=== PATIENT | male | born 1950 | race Caucasian/White ===

== ENCOUNTER 2018-08-28 13:39 | Inpatient (IN) ==
[2018-08-28] MEDS ORDERED: CeFAZolin Syr 2,000MG/20 ML 2,000 MG/20 ML SYRINGE IVPB ONE (14:12)
[2018-08-28] MEDS ORDERED: Ringers Solution, Lactated 1,000 ML IVC SCH (14:15)
--- NOTE | 2018-08-28 14:33 | Anesthesia Evaluation PreOp ---
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: Other (chronic low back pain) Other Medical History: Denies Any Significant HX, GERD Anesthesia History: No Prior Anesthetic Complications, Past Anesthesia (trigger finger, donor nephrectomy, finger amputation) Alcohol Use: none Drug use: none Medications and Allergies Ascorbic Acid [Vitamin C] 500 mg PO DAILY 08/28/18 [History] Aspirin [Lo-Dose Aspirin EC] 81 mg PO DAILY 08/28/18 [History] Omeprazole [PriLOSEC] 40 mg PO BID 08/28/18 [History] OxyCODONE/APAP 5/325 [Percocet 5/325 MG] 1 tab PO Q6H PRN 08/28/18 [History] Ubidecarenone/Vit E Acetate [Co Q-10 100 mg Softgel] 1 cap PO DAILY 08/28/18 [History] Allergy/AdvReac Type Severity Reaction Status Date / Time gabapentin AdvReac Nausea Verified 08/28/18 14:21 tramadol AdvReac Nausea Verified 08/28/18 14:21 - Meds/Allergy Pre-op Review Medications Reviewed: Yes Allergies Reviewed: Yes Beta Blockers on Current Med List: No Anesthesia Results - Labs Laboratory Tests 08/18/18 08/18/18 08/18/18 18:34 18:34 18:34 WBC 9.7 Hgb 14.4 Hct 43.5 Plt Count 170 PT 11.5 INR 1.0 APTT 26.8 Sodium 139 Potassium 4.3 Chloride 106 Carbon Dioxide 22 L BUN 21 Creatinine 0.97 Glucose 135 H - Imaging EKG: report reviewed (Sinus rhythm Atrial premature complex Prolonged NE interval Inferior infarct, old Electronically Signed On 08-19-2018 13:53:41 EST by Arleth Sow) Anesthesia Exam O2 Sat Height 1.78 m Height 1.78 m Weight 106.594 kg Weight 106.594 kg O2 Sat by Pulse Oximetry 94 Vital Signs Temp Pulse Resp Pulse Ox 98.7 F 100 18 94 08/28/18 14:18 08/28/18 14:18 08/28/18 14:18 08/28/18 14:18 Weight: 106kg NPO (# of Hours): >8 - HEENT Pupil (Motor): Pupils equal, EOMI Mallampati: III Teeth: Poor dentition - ENVIRONMENTAL SERVICES AIDE LOC: Oriented ENVIRONMENTAL SERVICES AIDE Motor: Normal RUE, Normal LUE, Normal RLE, Normal LLE, Normal Face ENVIRONMENTAL SERVICES AIDE Sensory: Normal: RUE, LUE, RLE, LLE, Face - Cardiac Rhythm: Regular - Pulmonary Breath Sounds: bilateral Clear Respiratory Effort: Symmetrical Anesthesia Assess/Plan ASA Score: 2 Level of consciousness: Cooperative Anesthetic Plan: General, Regional Nerve Block Regional Nerve Block Plan: Supraclavicular (L) Monitoring Plan: Standard Monitors Recovery Plan: PACU
--- NOTE | 2018-08-28 14:34 | History & Physical Report ---
Date of Encounter: 08/28/18 Time of Encounter: 14:33 24 Hour HP Update - Instructions Instructions: If the History and Physical is less than 30 days old and was completed prior to A.M. admission and or procedure and has NOT been updated on calendar day of procedure please complete this update prior to performing procedure. - Update Patient reports changes in Medical Condition: No Changes in examination, assessment, or condition: No Changes in Medication: No Preop tests/diagnostics Reviewed: Yes Surgery Remains Indicated: Yes Consent for Planned Operative Procedure(s) Verified: Yes - Pre-Operative Checklist Preoperative Checklist Indicated: No Prophylactic Antibiotic Ordered: Yes Is VTE Prophylaxis Indicated?: Yes
[2018-08-28] MEDS ORDERED: Acetaminophen IV 1,000 MG/100 ML INFUS..BTL ONE (14:39)
[2018-08-28] MEDS ORDERED: *HR* Midazolam HCl 2 MG/2 ML VIAL ONE (14:43)
[2018-08-28] MEDS ORDERED: *HR* Propofol 200 MG/20 ML VIAL IVP ONE (14:46)
[2018-08-28] MEDS ORDERED: *HR* FentaNYL (PF) 100 MCG/2 ML VIAL ONE (14:46)
[2018-08-28] MEDS ORDERED: Ondansetron 4 MG/2 ML VIAL ONE (14:48)
[2018-08-28] MEDS ORDERED: Lidocaine -MPF 2% 2 ML VIAL ONE (14:48)
[2018-08-28] MEDS ORDERED: Dexamethasone 4 MG/ML VIAL ONE ×2 (14:48→15:12)
[2018-08-28] MEDS ORDERED: *HR* Succinylcholine 200 MG/10 ML VIAL IVP ONE (14:48)
[2018-08-28] MEDS ORDERED: Bupivacaine/Clonidine Syringe 1 EACH SYRINGE ONE (15:07)
[2018-08-28] MEDS ORDERED: ROPIVACAINE HCL/PF 0.5% 30 ML VIAL ONE (15:07)
--- NOTE | 2018-08-28 15:28 | Discharge Summary ---
Orders not resulted at time of discharge: Pending orders 08/28/18 00:01 XR shoulder complete LT [XR] Routine H/H [Hemoglobin and Hematocrit] [HEME] Routine 08/28/18 14:52 US anesthesia pain block [US] Stat Date of Encounter: 08/29/18 Time of Encounter: 11:54 - Discharge Diagnosis (1) Status post reverse total replacement of left shoulder Priority: Primary Status: Acute Comments: Opsite dressing, leave intact until first post-operative visit. Zipline in place, plan to remove at post-operative day #14-16. If dressing becomes >50% saturated, contact office, remove dressing and place appropriate dressing in its place. Do not allow for dressing to get wet. Shoulder Precautions x 6 weeks. Apply cold therapy wrap 3-6x/day for 20 minutes at a time. Encourage ambulation throughout the day. Use Incentive spirometer 10x/hour. Elevate affected extremity above heart as tolerated. NWB to affected upper extremity x 6 weeks. 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 Pardo is a 68 year old male, status post Left TSR-r due to a fracture, no shoulder ROM Patient had uneventful postoperative course. Stable for discharge. Patient seen at bedside, without complaints. A&O x 3 Afebrile, vital signs stable. Vital Signs Temp Pulse Resp BP Pulse Ox 08/29/18 11:03 97.7 F 94 18 117/77 97 08/29/18 06:50 98.2 F 95 18 133/83 93 08/29/18 04:12 97.4 F L 91 16 136/84 91 08/28/18 23:47 97.6 F 92 16 129/79 94 08/28/18 21:15 98.1 F 91 16 106/66 95 08/28/18 20:15 97.5 F L 101 16 120/73 93 08/28/18 19:13 97.6 F 90 18 129/80 95 08/28/18 18:01 97.7 F 74 15 129/80 95 08/28/18 17:30 97.7 F 73 11 129/77 98 08/28/18 17:20 97.7 F 73 12 114/87 99 08/28/18 17:10 75 13 129/88 97 08/28/18 17:00 75 16 114/73 97 08/28/18 16:50 97.6 F 87 18 130/77 95 08/28/18 15:30 97 16 135/84 92 08/28/18 15:15 94 16 138/82 97 08/28/18 14:18 98.7 F 100 18 94 Intake and Output 08/28/18 08/29/18 08/29/18 23:59 07:59 15:59 Intake Total 1100 / 1100 300 / 300 Output Total 1100 / 1100 150 / 150 Balance -1100 / -1100 950 / 950 300 / 300 Intake: IV Fluids 1100 / 1100 300 / 300 Lactated Ringers 1,000 ML @ 75 1000 / 1000 200 / 200 mls/hr IVC .[id number] [facility] Rx#: [id number] Ancef 2,000 MG In 0.9 % Sodium 100 / 100 100 / 100 Chloride 100 ML @ 200 mls/hr IVPB Q8HR [facility] Rx#:[id number] Output: Urine 1000 / 1000 150 / 150 Estimated Blood Loss 100 / 100 Other: Meal Dinner Percent of Meal Consumed 100% # Voids 1 Weight 76.7 kg Patient Weight 08/29/18 23:59 Weight 76.7 kg Labs reviewed. H/H - stable, asymptomatic Short CBC 08/29/18 08/28/18 Range/Units 04:30 17:24 Hgb 11.1 L 11.8 L (12.9-16.9) g/dL Hct 33.5 L 36.1 L (37.5-50.1) % BMP 08/29/18 Range/Units 04:30 Sodium 138 (136-145) mEq/L Potassium 4.3 (3.5-5.1) mEq/L Chloride 106 (98-107) mEq/L Carbon Dioxide 22 L (23-29) mEq/L BUN 19 (8-23) mg/dL Creatinine 0.89 (0.70-1.30) mg/dL Glucose 160 H (70-105) mg/dL Calcium 8.6 (8.6-10.3) mg/dL Pain control: adequate Participating in PT. No Shoulder ROM All questions and concerns addressed. Educated on use of incentive spirometer. Encouraged ambulation and proper hydration. Patient educated on post-operative restrictions and post-operative care. Assessment and plan: Continue with postoperative care Discharge plan: Home, discharge today. - Time Spent with Patient Total time spent providing and/or coordinating discharge services: - Discharge Medications Home Medications: Ascorbic Acid [Vitamin C] 500 mg PO DAILY 08/28/18 [History] Aspirin [Lo-Dose Aspirin EC] 81 mg PO DAILY 08/28/18 [History] Omeprazole [PriLOSEC] 40 mg PO BID 08/28/18 [History] OxyCODONE Immed Rel [Roxicodone 5 MG] 5 mg PO Q6HR PRN 7 Days #28 tablet 08/28/18 [Rx] Ubidecarenone/Vit E Acetate [Co Q-10 100 mg Softgel] 1 cap PO DAILY 08/28/18 [History] Allergies/Adverse Reactions: Allergy/AdvReac Type Severity Reaction Status Date / Time gabapentin AdvReac Nausea Verified 08/28/18 14:21 tramadol AdvReac Nausea Verified 08/28/18 14:21 Date of admission: 08/28 Primary care physician: Elyse Hua Anticipated date of discharge: 08/29/18 - Patient Status Disposition: Home, Self-Care Condition: Good Functional capacity at discharge: independent ambulation Overall status at discharge: patient is progressing back to baseline - Discharge Instructions Follow Up With: Elyse Hua, LDR NURSE [Primary Care Provider] -
[2018-08-28] MEDS ORDERED: Ondansetron 4 MG/2 ML VIAL IVP ONE (15:30)
[2018-08-28] MEDS ORDERED: *HR* HYDROmorphone (PF) 1 MG/ML SYRINGE IVP PRN (15:30)
[2018-08-28] MEDS ORDERED: *HR* OxyCODONE/APAP 5/325 TABLET PO PRN (15:30)
--- NOTE | 2018-08-28 15:54 | Anesthesia Procedures ---
Date of Encounter: 08/28/18 Time of Encounter: 15:17 Procedures: Anesthesia - Nerve Block Procedure Date: 08/28/18 Time: 15:17 Allergies/Adv Reactions: Gabapentin, Tramadol Pre-op Diagnosis: L Humerus Fractureq Surgical Procedure: L Total Shoulder Arthroplasty Checklist: Correct Patient Identifier, Correct procedure, History checked Correct side: Left Blood Thinner: No Monitor Applied: EKG, BP, Pulse Oximetry Supplemental Oxygen via Nasal Cannula (L/min): 2 Sedation: Versed (mg): 2 Sedation: Fentanyl (mcg): 100 Indication: Post Op Analgesia Pre-op Neuro Deficits: No Block Type: Supraclavicular, Other (Superficial Cervical, Intercostobracheal) Catheter placed: No Sterile Technique: Yes Ultrasound used: Yes Anatomy identified: Yes Visual spread of Local: Yes Neuro Stimulation: No Blood on Needle Aspiration: No Smooth Injection of Local: Yes Pain with Injection of Local: No Prep: Chlorhexadine Needle: 22 x 50 mm Stimuplex Local: 0.25% Bupivicaine w/Clonidine 20 mcg/cc (8mL for Superficial Cervical and 12mL for Intercostobracheal), Ropivacaine (30mL 0.5% Ropivacaine with 8mg decadron) Number of Attempts: 1 Complications: None/effective block Vitals: Vital Signs/O2 Sat/Glucose, Most Recent Temp Pulse Resp BP Pulse Ox 98.7 F 97 16 135/84 92 08/28/18 14:18 08/28/18 15:30 08/28/18 15:30 08/28/18 15:30 08/28/18 15:30
--- NOTE | 2018-08-28 16:04 | Anesthesia Procedures ---
Date of Encounter: 08/28/18 Time of Encounter: 15:33 Procedures: Anesthesia - Nerve Block Procedure Date: 08/28/18 Time: 15:17 Allergies/Adv Reactions: Gabapentin, Tramadol Pre-op Diagnosis: Howard Mcwilliams
[2018-08-28] MEDS ORDERED: EPHEDrine 50 MG/ML VIAL ONE (16:08)
--- NOTE | 2018-08-28 16:32 | Orthopedic Operative Note ---
Date of procedure: 08/28/18 Pre-op diagnosis: Displaced, head split left proximal humerus fracture Post-op diagnosis: same Procedure: Procedure: Total Shoulder Replacment Reverse, left Estimated blood loss: 100 cc Hardware: Metal and polyethylene replacement: Arthrex 24, +4, 35 mm screw screw glenoid baseplate, 4, 5.5 locking screw, 42+4 glenosphere, 12 humeral stem, poly insert 3 constrained Procedural Notes: Head split displaced comminuted proximal humerus fracture. Operative procedure: The patient was brought to the operating room and placed on the operating room table. After general anesthesia was administered the operative shoulder was examined. Findings were noted. The patient was placed in the modified beachchair position. All pressure points were padded appropriately. And the head was stabilized in the neutral position. The operative extremity was prepped and draped in the sterile surgical fashion. The patient received IV antibiotics prior to skin incision. A standard deltopectoral approach was made to the operative shoulder. Incision was made to the skin and subcutaneous tissue,hemo stasis was obtained with Bovie cautery. Using careful blunt dissection the cephalic vein was identified and mobilized medially. The deltopectoral interval was developed patient had severe comminution of the proximal humerus with a split of the humeral head. Pieces were removed individually. The humeral shaft was dislocated patient had significant scarring around the humeral shaft from the time from fracture injury. Anterior and posterior Bankart retractors were placed to expose the glenoid. The glenoid guide was seated and the centering hole was made. It was reamed with the appropriate reamer. The 24, +4, 35 mm screw, baseplate was seated and secured with 4, 5.5 locking screws The baseplate was irrigated and dried and the void 2+4 Glenosphere was seated and secured with the Causey taper. The Causey taper was tested and found to be secure the humerus was redislocated and prepared with the diaphyseal reamers, followed by a broaching process up to the appropriate size 12 in the 20 degrees retroversion. Trial reduction found the shoulder to be relocatable. Trial components were removed and [address] in 20 degrees of retroversion. Trial reduction found the shoulder to be relocatable and stable with the appropriate 3 constrained Trial component was removed and the real implant was seated and secured the shoulder was reduced. The shoulder had excellent motion and excellent stability and no evidence of dislocation. The deep tissue was irrigated with pulse irrigation. The PA close the shoulder. The deltopectoral interval was closed with a running #1 PDS suture, subcutaneous tissue was irrigated and closed with 0 PDS suture, the skin was closed with Dermabond. The patient was placed in a sterile dressing, abduction brace and extubated. The patient was then transferred to the recovery room in stable condition. Anesthesia: GETA Surgeon: Alexandre Boland Was there an assistant strength coach present: No Estimated blood loss (cc): 100 Condition: stable Disposition: PACU
[2018-08-28 17:44] LABS: Hematocrit 36.1 % (37.5-50.1); Hemoglobin 11.8 g/dL (12.9-16.9)
[2018-08-28] MEDS ORDERED: MOM Conc 10 ML UD.LIQ PO PRN (17:51)
[2018-08-28] MEDS ORDERED: Temazepam 15 MG CAPSULE PO PRN (17:51)
[2018-08-28] MEDS ORDERED: *HR* OxyCODONE Immed Rel 5 MG TABLET PO PRN (17:51)
[2018-08-28] MEDS ORDERED: Ondansetron 4 MG/2 ML VIAL IVP PRN (17:51)
[2018-08-28] MEDS ORDERED: Naloxone 0.4 MG/ML INJ IVP PRN (17:51)
[2018-08-28] MEDS ORDERED: Sennosides 8.6 MG TABLET PO PRN (17:51)
[2018-08-28] MEDS ORDERED: *HR* Enoxaparin 30 MG/0.3 ML SYRINGE SQ SCH (18:00)
--- NOTE | 2018-08-28 19:05 | Anesthesia Evaluation Post Op ---
Date of Encounter: 08/28/18 Time of Encounter: 17:22 - Discharge PostOp Status: Transfer Patient to floor (Patient's vital signs have been reviewed. Patient is stable postoperatively and has adequately recovered from anesthesia. Patient is determined to have stable airway patency and respiratory function including respiratory rate and oxygen saturation. Patient has a stable heart rate, blood pressure and adequate hydration. Patients mental status is acceptable. Patients temperature is appropriate. Pain and nausea are adequately controlled.)
[2018-08-28] MEDS: *HR* Enoxaparin 30 MG/0.3 ML SYRINGE SQ SCH (19:48)
[2018-08-28] MEDS: Ringers Solution, Lactated 1,000 ML IVC SCH (19:49)
[2018-08-29 05:09] LABS: Hematocrit 33.5 % (37.5-50.1); Hemoglobin 11.1 g/dL (12.9-16.9)
[2018-08-29] MEDS: *HR* Enoxaparin 30 MG/0.3 ML SYRINGE SQ SCH (05:12)
[2018-08-29] MEDS: *HR* OxyCODONE/APAP 5/325 TABLET PO PRN ×2 (05:16→14:11)
[2018-08-29 05:37] LABS: BUN/Creatinine Ratio 21 (6-26); Blood Urea Nitrogen 19 mg/dL (8-23); Calcium 8.6 mg/dL (8.6-10.3); Carbon Dioxide 22 mEq/L (23-29); Chloride 106 mEq/L (98-107); Glucose 160 mg/dL (70-105); Osmolality,Calculated 292 (280-300); Potassium 4.3 mEq/L (3.5-5.1); Sodium 138 mEq/L (136-145); eGFR For Non-African Americans > 60 (> 60)
[2018-08-29] MEDS: Ringers Solution, Lactated 1,000 ML IVC SCH (05:42)
--- NOTE | 2018-08-29 07:52 | Orthopedics Progress Note ---
Date of Encounter: 08/29/18 Time of Encounter: 07:51 Subjective Interval history: Patient was seen this morning doing well without complaints. Afebrile vital signs stable. Operative extremity: Left upper extremity still numb from nerve block. Dressing clean dry and intact Calves nontender Assessment and plan: Continue with postoperative care Objective Vital signs: Vital Signs Temp Pulse Resp BP Pulse Ox 08/29/18 06:50 98.2 F 95 18 133/83 93 08/29/18 04:12 97.4 F L 91 16 136/84 91 08/28/18 23:47 97.6 F 92 16 129/79 94 08/28/18 21:15 98.1 F 91 16 106/66 95 08/28/18 20:15 97.5 F L 101 16 120/73 93 08/28/18 19:13 97.6 F 90 18 129/80 95 08/28/18 18:01 97.7 F 74 15 129/80 95 08/28/18 17:30 97.7 F 73 11 129/77 98 08/28/18 17:20 97.7 F 73 12 114/87 99 08/28/18 17:10 75 13 129/88 97 08/28/18 17:00 75 16 114/73 97 08/28/18 16:50 97.6 F 87 18 130/77 95 08/28/18 15:30 97 16 135/84 92 08/28/18 15:15 94 16 138/82 97 08/28/18 14:18 98.7 F 100 18 94 Intake and Output 08/28/18 08/28/18 08/29/18 15:59 23:59 07:59 Intake Total 1100 / 1100 Output Total 1100 / 1100 150 / 150 Balance -1100 / -1100 950 / 950 Intake: IV Fluids 1100 / 1100 Lactated Ringers 1,000 ML @ 75 1000 / 1000 mls/hr IVC .[id number] [facility] Rx#: [id number] Ancef 2,000 MG In 0.9 % Sodium 100 / 100 Chloride 100 ML @ 200 mls/hr IVPB Q8HR [facility] Rx#:[id number] Output: Urine 1000 / 1000 150 / 150 Estimated Blood Loss 100 / 100 Other: Meal Dinner Percent of Meal Consumed 100% # Voids 1 Weight 106.594 kg 76.7 kg Patient Weight 08/29/18 23:59 Weight 76.7 kg - Labs CBC & BMP: 08/29/18 04:30 08/29/18 04:30 Labs: Abnormal lab results Hgb 11.1 g/dL (12.9-16.9) L 08/29/18 04:30 Hct 33.5 % (37.5-50.1) L 08/29/18 04:30 Carbon Dioxide 22 mEq/L (23-29) L 08/29/18 04:30 Glucose 160 mg/dL (70-105) H 08/29/18 04:30 Consult Discharge Plan - Plan Referrals: Elyse Hua, PHOTOENGRAVING ETCHER [Primary Care Provider] -
[2018-08-29] MEDS ORDERED: (Ubidecarenone/Vit E Acetate [Co Q-10 100 Mg Softgel]) PO SCH (09:00)
[2018-08-29] MEDS ORDERED: Aspirin Enteric Coated 81 MG Tablet PO SCH (09:00)
[2018-08-29] MEDS ORDERED: Ascorbic Acid 500 MG TABLET PO SCH (09:00)
[2018-08-29 11:05] VITALS: BP 117/77
== END 2018-08-29 14:19 | disposition home or self-care (01) | DRG 483 ==
LOC: SAMDAY 13:39 → 3NENU 17:36
PROVIDERS: ADMIT Orthopaedic Surgery; ATTEND Orthopaedic Surgery